=== PATIENT | female | born 2000 | race African-American/Black ===

== ENCOUNTER 2020-03-06 17:15 | Emergency (ER) | payer OTHER ==
[~2020-03-06] VITALS: Ht 162.6 cm; Wt 56.8 kg
[2020-03-06] MEDS ORDERED: SUCRALFATE 1 GM TAB PO ONE (18:00)
[2020-03-06] MEDS ORDERED: GI COCKTAIL 50ML BTL(HYOSCYAMINE/MAALOX/LIDOCAINE VISCOUS)(1:3:1) PO ONE (18:00)
[2020-03-06 18:30] LABS: BASO % 0.3 % (0.0-1.0); EOS # 0.1 10^3/uL (0.0-0.5); EOS % 1.7 % (0.0-3.0); HEMATOCRIT 38.2 % (36.0-47.0); LYMPH # 2.9 10^3/uL (1.5-5.0); LYMPH % 48.2 % (24.0-44.0); MEAN CORPUSCULAR HEMOGLOBIN 28.2 pg (27.0-33.0); MEAN CORPUSCULAR HGB CONC 31.4 g/dl (32.0-36.5); MEAN CORPUSCULAR VOLUME 89.9 fl (80.0-96.0); MONO # 0.4 10^3/uL (0.0-0.8); MONO % 6.6 % (0.0-5.0); NEUTROPHILS # 2.5 10^3/uL (1.5-8.5); NEUTROPHILS % 42.9 % (36.0-66.0); PLATELET COUNT, AUTOMATED 256 10^3/uL (150-450); RED BLOOD COUNT 4.25 10^6/uL (4.00-5.40); WHITE BLOOD COUNT 5.9 10^3/uL (4.0-10.0)
[2020-03-06 18:46] LABS: ALBUMIN 3.9 GM/DL (3.2-5.2); ALT/SGPT 26 U/L (12-78); BILIRUBIN,DIRECT < 0.1 MG/DL (0.0-0.2); BILIRUBIN,TOTAL 0.1 MG/DL (0.2-1.0); CPK CREATINE PHOSPHOKINASE 542 U/L (26-192); LIPASE 129 U/L (73-393); TOTAL PROTEIN 7.7 GM/DL (6.4-8.2)
[2020-03-06] MEDS ORDERED: NAPR-837 PO (19:09)
[2020-03-06 19:10] VITALS: BP 130/73
== END 2020-03-06 19:17 | disposition home or self-care (01) ==
LOC: M ED 17:15
DX: R74.8 Abnormal levels of other serum enzymes (principal); R10.13 Epigastric pain

== ENCOUNTER 2022-01-06 16:46 | Emergency (ER) | payer OTHER ==
[~2022-01-06] VITALS: Ht 160 cm; Wt 67.9 kg
[~2022-01-06 16:46] MED LIST: NAPR-837 PO
[2022-01-06 16:47] VITALS: BP 128/62
[2022-01-06] MEDS ORDERED: MULTTAB20 PO (17:28)
[2022-01-06] MEDS ORDERED: DICL10TA PO (17:28)
== END 2022-01-06 17:42 | disposition home or self-care (01) ==
LOC: M ED 17:35
DX: Z34.91 Encounter for supervision of normal pregnancy, unspecified, first trimester (principal)